=== PATIENT | female | born 1980 | race Asian ===

== ENCOUNTER 2017-05-23 14:34 | Emergency (ER) | payer MEDICAID ==
[2017-05-23 18:20] VITALS: BP 126/80
== END 2017-05-23 18:21 | disposition home or self-care (01) ==
LOC: ED 14:34
DX: S01.111A Laceration without foreign body of right eyelid and periocular area, initial encounter (principal); W22.8XXA Striking against or struck by other objects, initial encounter; Y93.89 Activity, other specified; Y92.89 Other specified places as the place of occurrence of the external cause; Y99.8 Other external cause status
CPT/HCPCS: 90715; J2001

== ENCOUNTER 2017-05-29 09:37 | Emergency (ER) | payer MEDICAID ==
[~2017-05-29] VITALS: Ht 160 cm; Wt 63.5 kg
[2017-05-29 10:56] VITALS: BP 113/83
== END 2017-05-29 10:56 | disposition home or self-care (01) ==
LOC: ED 09:37
DX: S01.111D Laceration without foreign body of right eyelid and periocular area, subsequent encounter (principal); X58.XXXD Exposure to other specified factors, subsequent encounter; Y99.8 Other external cause status; Y92.89 Other specified places as the place of occurrence of the external cause